=== PATIENT | female | born 1985 | race Caucasian/White ===

== ENCOUNTER 2019-01-09 13:10 | Outpatient (CLI) | payer BC, SELFPAY ==
[2019-01-09 13:43] VITALS: BMI 25.5
[2019-01-09 14:08] LABS: ROM Internal Control Test YES-OK TO RESULT pt. (Internal QC); ROM Patient Test Negative (Negative)
--- NOTE | 2019-01-09 15:08 | OB.TRI.NOTE ---
- Problem List (1) Vaginal discharge during Status: Acute History of Present Illness Date of Service: 01/09/19 Was patient seen by the physician?: Yes Reason For Visit: RULE OUT RUPTURE Date of Service: 01/09/19 Final QING: 01/12/19 Gestational age: 39 Weeks and 4 Days History of Present Illness: Patient states her underwear were very wet this morning. No gush or continued leakage of fluid. No ctx, vb. Good FM. Allergies No Known Allergies Allergy (Verified 01/09/19 13:45) Laboratory Studies: Laboratory Tests 01/09/19 Range/Units 13:40 Vag Amniotic Fld Detect Negative (Negative) NST - FHR Rate Baby A Variability:: Moderate Accelerations:: 15 x 15 Decelerations:: Variable - One isolated variable deceleration NST Reactive:: Yes Uterine Activity:: Occasional ctx's Impression/Plan - ROM plus negative for rupture - MVP 6 cm on TAUS - Okay for d/c home. Discussed return precautions
== END 2019-01-09 15:35 | disposition home or self-care (01) ==
LOC: WPOUT 13:33 → OBT 13:34
PROVIDERS: Referring Provider Obstetrics & Gynecology; Visit Provider Obstetrics & Gynecology
DX: O26.893 Other specified pregnancy related conditions, third trimester (principal); N89.8 Other specified noninflammatory disorders of vagina; O36.8330 Maternal care for abnormalities of the fetal heart rate or rhythm, third trimester, not applicable or unspecified; Z3A.39 39 weeks gestation of pregnancy
CPT/HCPCS: 59025; 59050; 76815; 84112; 99218; G0378

== ENCOUNTER 2019-01-14 13:20 | Inpatient (IN) | payer BC, SELFPAY ==
[2019-01-14 13:39] VITALS: BMI 26.8
[2019-01-14] MEDS: Lactated Ringers 1,000 ML 50 ML IV (13:45)
[2019-01-14 14:07] LABS: Absolute Lymphocyte Count 2.36 X10^3/uL (0.83-4.51); Absolute Neutrophil Count 7.2 X10^3/uL (2.0-7.7); Basophil# 0.07 X10^3/uL; Basophil% 0.7 % (0-1); Eosinophil# 0.04 X10^3/uL; Eosinophils% 0.4 % (0-5); Hematocrit 41.2 % (37-47); Hemoglobin 13.7 g/dL (12.0-15.0); Lymphocyte # 2.36 X10^3/ul (4.0); Lymphocyte % 22.3 % (19-41); Mean Corp Hgb Conc 33.3 g/dL (32-36); Mean Corpuscular Hgb 30.4 pg (27.0-32.0); Mean Corpuscular Volume 91.4 fL (81-99); Mean Platelet Vol. 10.9 fl (6.2-12.0); Monocyte# 0.78 X10^3/uL; Monocyte% 7.4 % (0-10); NRBC Flagged by Analyzer 0 % (0-5); Neutrophil # 7.19 X10^3/uL (2.7-7.7); Neutrophil % 68.1 % (47-70); Platelet Count 211 K/mm3 (150-450); RBC Distribution Width CV 13.5 % (11.6-14.6); RBC Distribution Width SD 44.8 fl (35.1-43.9); Red Blood Count 4.51 M/mm3 (4.2-5.4); White Blood Count 10.6 K/mm3 (4.4-11.0)
[2019-01-14] MEDS: Oxytocin 30 units/NS 500 ml 30 UNITS/500 ML IV.SOLN IV (14:19)
--- NOTE | 2019-01-14 16:32 | HP.PCM_ITS ---
History Date of Admission: 01/14/19 Final QING: 01/12/19 Final QING Source: LMP Gestational age: 40 Weeks and 2 Days History of this : This is a 33 year-old, @ 40.2 wks here for elective IOL - pt denies any VB, LOF or regular contractions. Allergies No Known Allergies Allergy (Verified 01/14/19 13:39) Home Medications: Home Medications Acyclovir 400 mg PO DAILY 01/09/19 Ferrous Sulfate [Iron] 325 mg PO DAILY 01/09/19 Vit,Calc76/Iron/Folic [Pnv 29-1 Tablet] 1 ea PO DAILY 01/09/19 acyclovir Smoking Status: Never smoker Alcohol: None Number of Fetus(es): 1 NST - FHR Rate Baby A Baseline: 140 Variability:: Moderate Accelerations:: 15 x 15 Decelerations:: None NST Reactive:: Yes FHR Category:: Category I Uterine Activity:: irregular History Past Pregnancies: Past Pregnancies Delivery Date Name GA/ Weeks Outcome Route Wt Infant Sex Labor Length Anesthesia Delivery Location Provider FOB Labs: GBS negative Expected Delivery Method: Spontaneous Vaginal Review of Systems Constitutional: Denies: Anorexia Cardiovascular: Denies: Chest Pain Gastrointestinal: Denies: Abdominal Pain Physical Exam General: Alert, Oriented x3 Abdomen: Soft, Non Tender, Non-Distended, Gravid Neurological: Cranial nerves II-XII grossly intact 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
[2019-01-14] MEDS: Lactated Ringers 500 ML 999 ML IV (16:42)
[2019-01-14] MEDS: fentaNYL-bupivacaine (epidural) 100 ML BAG EPIDURAL (18:01)
[2019-01-14] MEDS: Oxytocin 30 units/NS 500 ml 30 UNITS/500 ML IV.SOLN 334 UNITS IV (19:08)
--- NOTE | 2019-01-14 19:22 | PCM.OPRPT ---
Vaginal Delivery Maternal Presentation: Elective Induction Method of Induction: Pitocin, Amniotomy Amniotic Membrane Rupture Type: Artificial Amniotic Fluid Description: Clear Final QING: 01/12/19 Final QING Source: LMP Gestational age: 40 Weeks and 2 Days Date of Procedure: 01/14/19 Pre-Operative Diagnosis: term gestation, elective IOL Post-Operative Diagnosis: live female infant Surgery/ Procedure Performed: Spontaneous Vaginal Delivery Type of Anesthesia: Epidural Description of Procedure: of live female born without complication. Gentle downward traction placed good maternal pushing efforts to deliver the anterior shoulder followed by the rest 's body. Infant was vigorous at time of delivery. Infant was placed in the mother's chest. Delayed cord clamping was performed. Presentation: Vertex Placental Delivery Description: Spontaneous Cord Vessel Description: 3 Vessels Cord Entanglement: None Estimated Blood Loss: 200 A gender: Female (1 minute): 9 (5 minute): 9 Episiotomy Description: None Laceration: Vaginal Extension/lac - repaired with 3-0 rapide, 1st degree Medications given after delivery: IV Pitocin Complications: None
[2019-01-14] MEDS: Ibuprofen 600 MG Tablet PO (23:36)
[2019-01-14 23:45] VITALS: BP 129/71; PULSE 91; RESP 18; TEMP 36.4
[2019-01-15 04:00] VITALS: BP 111/78; PULSE 73; RESP 16; TEMP 36.2
[2019-01-15 07:54] VITALS: BP 111/68; PULSE 72; RESP 18
--- NOTE | 2019-01-15 08:00 | PCM.PN.OB ---
Subjective: pt seen at bedside doing well. Patient reports good pain control. Mild lochia. Breast-feeding going well. Voiding without difficulty. requesting DC home today. - Physical Exam Vitals/I&O's: Vital Signs Temp Pulse Resp BP 97.1 F L 72 18 111/68 01/15/19 04:00 01/15/19 07:54 01/15/19 07:54 01/15/19 07:54 Weight: 64.41 kg Body Mass Index (BMI) 26.8 Intake and Output for Last 24 Hours 01/13/19 01/14/19 01/15/19 23:59 23:59 23:59 Intake Total 1537.89 / 1537.89 Output Total 1000 / 1000 Balance 1537.89 / 1537.89 -1000 / -1000 General: Alert, Oriented x3 Abdomen: Soft, Non Tender, Non-Distended, - - fundus firm Extremities: No Calf Tenderness Laboratory Results 01/14/19 13:45: WBC 10.6, RBC 4.51, Hgb 13.7, Hct 41.2, MCV 91.4, MCH 30.4, MCHC 33.3, RDW Std Deviation 44.8 H, RDW Coeff of Jacob 13.5, Plt Count 211, MPV 10.9, Immature Gran % (Auto) 1.100 H, Neut % (Auto) 68.1, Lymph % (Auto) 22.3, [place] % (Auto) 7.4, Eos % (Auto) 0.4, Baso % (Auto) 0.7, Absolute Neuts (auto) 7.2, Absolute Lymphs (auto) 2.36, Nucleated RBC % 0 01/14/19 13:45: Blood Type A POSITIVE, Antibody Screen NEGATIVE Current Medications Acetaminophen (Tylenol) 1,000 mg PO Q8H PRN PRN PRN Reason: Pain Score 1-3/10 Bisacodyl (Dulcolax) 10 mg RECTAL UD PRN PRN Reason: If no BM Dibucaine (Dibucaine) 1 applic TOPICAL TID PRN PRN; Protocol PRN Reason: Discomfort Hydrocortisone (Hytone) 1 applic TOPICAL TID PRN PRN; Protocol PRN Reason: Discomfort Ibuprofen (Motrin) 600 mg PO Q6H PRN PRN PRN Reason: Pain Score 1-3/10 Last Admin: 01/14/19 23:36 Dose: 600 mg Documented by: Methylergonovine Maleate (Methergine) 0.2 mg IM X1 PRN PRN Reason: Excess bleeding/uterine atony Ondansetron HCl (Zofran) 4 mg IV Q4H PRN PRN PRN Reason: Nausea Senna/Docusate Sodium (Senokot-S, [place]ace) 1 - 2 tablet PO DAILY PRN PRN PRN Reason: Constipation Simethicone (Mylicon) 80 mg PO PCHS PRN PRN Reason: Indigestion/Stomach pain Sodium Chloride () 5 - 15 ml IV UD PRN PRN Reason: SALINE FLUSH Medical Necessity - Tobacco Use Smoking Status: Never smoker Assessment/Plan All Active Problems (Last Updated 01/14/19 @ 16:33 by Gina Hernandez MD) Vaginal discharge during (Acute) PPD#1, doing well routine care pain mgmt dc home
--- NOTE | 2019-01-15 08:05 | DCINST_ITS ---
Discharge Diet: No Restrictions Discharge Activity: Return to Normal Activity, May not drive while taking narcotic pain medications., May Shower May resume sexual activity in: 4-6 weeks Additional Activity Instructions:: Nothing in the vagina for 4-6 weeks. You may return to work/school in 6 weeks. Call your doctor if your incision/area has: Continuous Slow Oozing, Sudden Increased Bleeding, Increased Pain/ Swelling, Increased Redness, Foul Smelling Discharge Additional Instructions: If you experience any of the following, contact your healthcare provider. * Bleeding that soaks a pad every hour for 2 hours * Fever 100.4 or higher * Unrelieved incision or abdominal pain * Swelling, redness, discharge or bleeding from your incision or episiotomy site * Your incision begins to separate * Problems urinating (including inability to urinate or burning while urinating). * Visual changes * Severe headache * Flu-like symptoms * Pain or redness in one of both of your breasts * Pain, warmth, tenderness or swelling in your legs, especially the calf area * Frequent nausea and vomiting * Symptoms of depression or anxiety If you experience any of the following, call 911 or go to the nearest Emergency Room. * Chest pain * Problems breathing * Seizure activity * Partial or complete paralysis of a body part, slurred speech, weakness or drooping of the face, or a sudden inability to walk or hold your balance Allergies/Adverse Reactions: Allergies No Known Allergies Allergy (Verified 01/14/19 13:39) Medications to take at Discharge Vit,Calc76/Iron/Folic [Pnv 29-1 Tablet] 1 ea PO DAILY 01/09/19 Ibuprofen [Motrin] 600 mg PO Q6H PRN PRN #30 tab 01/15/19 The following prescriptions were given: Ibuprofen [Motrin] 600 mg PO Q6H PRN PRN #30 tab PRN Reason: Pain Score 1-05/10 Transmission Status: Sent to [facility]/pharmacy #[id number] When: Call to make an appointment with your doctor in 6 weeks. If you had elevated Blood Pressure or 4th degree laceration you will need to be seen in 2 weeks. Primary Care Physician: Care Physician,No Primary [Primary Care Provider] - Test Results: Test results from this visit will be discussed in further detail at your follow- up appointment, if applicable.
--- NOTE | 2019-01-15 08:05 | PCM.DCVAG ---
Discharge Diet: No Restrictions Discharge Activity: Return to Normal Activity, May not drive while taking narcotic pain medications., May Shower May resume sexual activity in: 4-6 weeks Additional Activity Instructions:: Nothing in the vagina for 4-6 weeks. You may return to work/school in 6 weeks. Call your doctor if your incision/area has: Continuous Slow Oozing, Sudden Increased Bleeding, Increased Pain/ Swelling, Increased Redness, Foul Smelling Discharge Additional Instructions: If you experience any of the following, contact your healthcare provider. Bleeding that soaks a pad every hour for 2 hours Fever 100.4 or higher Unrelieved incision or abdominal pain Swelling, redness, discharge or bleeding from your incision or episiotomy site Your incision begins to separate Problems urinating (including inability to urinate or burning while urinating). Visual changes Severe headache Flu-like symptoms Pain or redness in one of both of your breasts Pain, warmth, tenderness or swelling in your legs, especially the calf area Frequent nausea and vomiting Symptoms of depression or anxiety If you experience any of the following, call 911 or go to the nearest Emergency Room. Chest pain Problems breathing Seizure activity Partial or complete paralysis of a body part, slurred speech, weakness or drooping of the face, or a sudden inability to walk or hold your balance Allergies/Adverse Reactions: Allergies No Known Allergies Allergy (Verified 01/14/19 13:39) Medications to take at Discharge Vit,Calc76/Iron/Folic [Pnv 29-1 Tablet] 1 ea PO DAILY 01/09/19 Ibuprofen [Motrin] 600 mg PO Q6H PRN PRN #30 tab 01/15/19 The following prescriptions were given: Ibuprofen [Motrin] 600 mg PO Q6H PRN PRN #30 tab PRN Reason: Pain Score 1-3/10 Transmission Status: Sent to [facility]/pharmacy #[id number] When: Call to make an appointment with your doctor in 6 weeks. If you had elevated Blood Pressure or 4th degree laceration you will need to be seen in 2 weeks. Primary Care Physician: Care Physician,No Primary [Primary Care Provider] - Test Results: Test results from this visit will be discussed in further detail at your follow-up appointment, if applicable.
[2019-01-15] MEDS: Ibuprofen 600 MG Tablet PO ×2 (08:18→20:23)
[2019-01-15 14:00] VITALS: BP 107/67; PULSE 75; RESP 16; TEMP 36.6
[2019-01-15 20:11] VITALS: BP 110/72; PULSE 64; RESP 16; TEMP 37
== END 2019-01-15 20:45 | disposition home or self-care (01) | DRG 807 ==
PROVIDERS: Admitting Provider Obstetrics & Gynecology; Referring Provider Obstetrics & Gynecology; Visit Provider Obstetrics & Gynecology
DX: O70.0 First degree perineal laceration during delivery (principal); Z3A.40 40 weeks gestation of pregnancy; Z37.0 Single live birth
CPT/HCPCS: 59025; 59050; 85025; 86850; 86900; 86901; 99218; J7120; G0378